=== PATIENT | female | born 1975 | race Caucasian/White ===

== ENCOUNTER 2021-06-26 12:31 | Emergency (ER) | payer BC ==
[~2021-06-26] VITALS: Ht 170 cm; Wt 117.0 kg
[2021-06-26 12:35] VITALS: BP 127/83
[2021-06-26 13:05] LABS: ALBUMIN 3.7 GM/DL (3.2-4.5); POTASSIUM 4.1 MMOL/L (3.6-5.0)
--- NOTE | 2021-06-26 13:05 | ED Lower Extremity ---
General Chief Complaint: Lower Extremity Stated Complaint: L LEG REDNESS/PAIN Nursing Triage Note: PT C/O WORSENING PAIN TO L LOWER LEG. ONSET 2 DAYS AGO, PT HAS A HX OF DVT/PE, WAS ON ELIQUIS THEN XARELTO, PT REPORTS TOOK HERSELF OFF OF HER BLOOD THINNERS SEVERAL MONTHS AGO, STATES HAS BEEN TAKEING TUMERIC CAPSULES SINCE THEN. PT C/O L LOWER LEG PAIN X 2 DAYS, REPORTS TOOK AN ASA LAST NIGHT AND ELEVATED HER LEG. Source: patient Exam Limitations: no limitations History of Present Illness Date Seen by Provider: Jun 26, 2021 Time Seen by Provider: 13:02 Initial Comments To ER with reports of left medial lower leg discomfort and swelling. This began yesterday. She has a history of DVT in her left leg. She was initially on Eliquis and then transition to Xarelto. She states that while on the Xarelto she had diffuse joint pains and it made her feel generally poorly so she stopped taking it a few months ago. She then followed with primary care Dr. Lucila Garcia and they discussed that since this was the first occurrence of DVT and she had already been on anticoagulants for a couple of years it was reasonable to try stopping it. She had been doing fine until last night she developed some swelling and redness. She did take an aspirin last night. No chest pain no shortness of breath and otherwise feels fine. She denies any recent surgeries or prolonged immobilization, no injury to the leg. She states that her father does have a history of DVT as well. Onset: just prior to arrival Severity: moderate Pain/Injury Location: left ankle Modifying Factors: Worse With Movement Allergies and Home Medications Allergies Coded Allergies: No Known Drug Allergies (Unverified , 02/08/12) Patient Home Medication List Home Medication List Reviewed: Yes Review of Systems Constitutional: see HPI EENTM: see HPI Respiratory: no symptoms reported Cardiovascular: no symptoms reported Genitourinary: no symptoms reported Musculoskeletal: see HPI Skin: no symptoms reported Psychiatric/Neurological: No Symptoms Reported Past Wmoqtpz-Baadmr-Xqjejm Hx Patient Social History Tobacco Use?: No Use of E-Cig and/or Vaping dev: No Substance use?: No Alcohol Use?: No Pt feels they are or have been: No Immunizations Up To Date First/Initial COVID19 Vaccinat: JUL 2020 Second COVID19 Vaccination Mk: AUG 2020 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 oz. kg; 40.00 BMI Method:Stated General Appearance: WD/WN, no apparent distress HEENT: PERRL/EOMI, normal ENT inspection Respiratory: no respiratory distress, no accessory muscle use Hips: bilateral hip non-tender, bilateral hip normal inspection, bilateral hip normal range of motion Legs: bilateral leg non-tender, bilateral leg normal inspection, bilateral leg normal range of motion Knees: bilateral knee non-tender, bilateral knee normal inspection, bilateral knee normal range of motion Ankles: left ankle other (questionable erythema just superior/medial to the left ankle.) Neurologic/Psychiatric: alert, normal mood/affect, oriented x 3 Skin: normal color, warm/dry Foot is warm and well-perfused strong posterior tibial pulse. Progress/Results/Core Measures Results/Orders Lab Results Laboratory Tests Test 06/26/21 12:47 06/26/21 13:05 Range/Units Sodium Level 135 135-145 MMOL/L Potassium Level 4.1 3.6-5.0 MMOL/L Chloride Level 107 98-107 MMOL/L Carbon Dioxide Level 16 L 21-32 MMOL/L Anion Gap 12 5-14 MMOL/L Blood Urea Nitrogen 10 7-18 MG/DL Creatinine 0.84 0.60-1.30 MG/DL Estimat Glomerular Filtration Rate 74 BUN/Creatinine Ratio 12 Glucose Level 120 H 70-105 MG/DL Calcium Level 8.7 8.5-10.1 MG/DL Corrected Calcium 8.9 8.5-10.1 MG/DL Total Bilirubin 0.2 0.1-1.0 MG/DL Aspartate Amino Transf (AST/SGOT) 45 H 5-34 U/L Alanine Aminotransferase (ALT/SGPT) 70 H 0-55 U/L Alkaline Phosphatase 96 40-136 U/L C-Reactive Protein High Sensitivity 1.17 H 0.00-0.50 MG/DL Total Protein 6.8 6.4-8.2 GM/DL Albumin 3.7 3.2-4.5 GM/DL White Blood Count 9.6 4.3-11.0 10^3/uL Red Blood Count 4.76 3.80-5.11 10^6/uL Hemoglobin 11.0 L 11.5-16.0 g/dL Hematocrit 36 35-52 % Mean Corpuscular Volume 77 L 80-99 fL Mean Corpuscular Hemoglobin 23 L 25-34 pg Mean Corpuscular Hemoglobin Concent 30 L 32-36 g/dL Red Cell Distribution Width 15.9 H 10.0-14.5 % Platelet Count 420 H 130-400 10^3/uL Mean Platelet Volume 9.2 9.0-12.2 fL Immature Granulocyte % (Auto) 1 % Neutrophils (%) (Auto) 66 42-75 % Lymphocytes (%) (Auto) 19 12-44 % Monocytes (%) (Auto) 10 0-12 % Eosinophils (%) (Auto) 3 0-10 % Basophils (%) (Auto) 0 0-10 % Neutrophils # (Auto) 6.4 1.8-7.8 10^3/uL Lymphocytes # (Auto) 1.9 1.0-4.0 10^3/uL Monocytes # (Auto) 1.0 0.0-1.0 10^3/uL Eosinophils # (Auto) 0.3 0.0-0.3 10^3/uL Basophils # (Auto) 0.0 0.0-0.1 10^3/uL Immature Granulocyte # (Auto) 0.1 0.0-0.1 10^3/uL D-Dimer 0.44 0.00-0.49 UG/ML Serum Test, Qualitative NEGATIVE NEGATIVE My Orders Orders - EARL PARRY APRN Cbc With Automated Diff (06/26/21 12:34) Comprehensive Metabolic Panel (06/26/21 12:34) Fibrin Degradation Products (06/26/21 12:34) Hs C Reactive Protein (06/26/21 12:34) Us Venous Lower Ext Lt (06/26/21 12:56) Hcg,Qualitative Serum (06/26/21 13:06) Vital Signs/I&O 06/26/21 06/26/21 12:35 13:52 Temp 36.3 Pulse 85 92 Resp 18 18 B/P (MAP) 127/83 (98) 110/75 Pulse Ox 98 98 O2 Delivery Room Air Room Air Blood Pressure Mean: 98 Departure Communication (Admissions) D-dimer is negative and the lower extremity venous ultrasound is also negative. She does not have a DVT despite her history of that. Cause of her pain is not entirely clear. She is very relieved to know that this is not a DVT. Impression Primary Impression: Pain of left calf Disposition: HOME, SELF-CARE Condition: Stable Departure-Patient Inst. Decision time for Depature: 13:57 Referrals: LUCILA GARCIA DO (PCP/Family) Primary Care Physician Patient Instructions: NO INSTRUCTIONS GIVEN Add. Discharge Instructions: . Return to ER for any concerns. All discharge instructions reviewed with patient and/or family. Voiced understanding. Scripts No Active Prescriptions or Reported Meds EARL PARRY WATER CARTER Jun 26, 2021 13:05
[2021-06-26 13:07] LABS: CALCIUM 8.7 MG/DL (8.5-10.1)
[2021-06-26 13:08] LABS: TOTAL PROTEIN 6.8 GM/DL (6.4-8.2)
[2021-06-26 13:10] LABS: BASOPHILS % (AUTO) 0 % (0-10); EOSINOPHILS # (AUTO) 0.3 10^3/uL (0.0-0.3); EOSINOPHILS % (AUTO) 3 % (0-10); HEMATOCRIT 36 % (35-52); LYMPHOCYTES # (AUTO) 1.9 10^3/uL (1.0-4.0); LYMPHOCYTES % (AUTO) 19 % (12-44); MEAN CORPUSCULAR HEMOGLOBIN 23 pg (25-34); MEAN CORPUSCULAR HGB CONC 30 g/dL (32-36); MEAN CORPUSCULAR VOLUME 77 fL (80-99); MEAN PLATELET VOLUME 9.2 fL (9.0-12.2); MONOCYTES % (AUTO) 10 % (0-12); NEUTROPHILS # (AUTO) 6.4 10^3/uL (1.8-7.8); NEUTROPHILS % (AUTO) 66 % (42-75); PLATELET COUNT 420 10^3/uL (130-400); WHITE BLOOD COUNT 9.6 10^3/uL (4.3-11.0)
[2021-06-26 13:10] LABS: BILIRUBIN,TOTAL 0.2 MG/DL (0.1-1.0)
[2021-06-26 13:12] LABS: CREATININE SERUM 0.84 MG/DL (0.60-1.30)
--- NOTE | 2021-06-26 14:09 | Diagnostic Imaging Report ---
EXAMINATION: US Lower Extremity Venous Duplex Left. TECHNIQUE: Multiple real-time grayscale images were obtained over the left lower extremity in various projections. Additional spectral analysis and color Doppler duplex images were also obtained. HISTORY: Swelling COMPARISON: None available. FINDINGS: Left: The common femoral, superficial femoral, popliteal, peroneal, posterior tibial, and greater saphenous veins demonstrate normal flow, augmentation, compressibility. IMPRESSION: 1. No DVT of the left lower extremity. Dictated by: Dictated on workstation # [id number]
== END 2021-06-26 14:00 | disposition home or self-care (01) ==
LOC: EDUNIT# 12:31 → ER 12:33
DX: M79.662 Pain in left lower leg (principal); Z86.718 Personal history of other venous thrombosis and embolism; Z79.01 Long term (current) use of anticoagulants
CPT/HCPCS: 36415; 80053; 84703; 85025; 85379; 86141

== ENCOUNTER 2022-08-03 13:04 | Emergency (ER) | payer BC ==
[~2022-08-03] VITALS: Ht 167 cm; Wt 113.0 kg
[2022-08-03 13:35] LABS: BASOPHILS % (AUTO) 1 % (0-10); HEMATOCRIT 34 % (35-52); HEMOGLOBIN 9.9 g/dL (11.5-16.0); MEAN CORPUSCULAR HEMOGLOBIN 20 pg (25-34); MEAN CORPUSCULAR HGB CONC 29 g/dL (32-36); MEAN CORPUSCULAR VOLUME 70 fL (80-99); MEAN PLATELET VOLUME 10.7 fL (9.0-12.2); MONOCYTES # (AUTO) 0.5 10^3/uL (0.0-1.0); MONOCYTES % (AUTO) 8 % (0-12)
[2022-08-03 13:36] LABS: EOSINOPHILS # (AUTO) 0.3 10^3/uL (0.0-0.3); EOSINOPHILS % (AUTO) 5 % (0-10); LYMPHOCYTES # (AUTO) 1.8 10^3/uL (1.0-4.0); LYMPHOCYTES % (AUTO) 26 % (12-44); NEUTROPHILS # (AUTO) 4.1 10^3/uL (1.8-7.8); NEUTROPHILS % (AUTO) 60 % (42-75); PLATELET COUNT 281 10^3/uL (130-400); WHITE BLOOD COUNT 6.8 10^3/uL (4.3-11.0)
[2022-08-03 13:45] LABS: SMEAR SCAN COMMENT YES
--- NOTE | 2022-08-03 13:47 | ED Respiratory ---
General Chief Complaint: Abdominal/GI Problems Stated Complaint: RT SIDE/CHEST PAIN Nursing Triage Note: RIGHT UPPER ABD PAIN THAT RADIATES INTO THE BACK X4 DAYS. STATES PAIN STARTED IN HER SHOULDER. HX OF PE X4 YEARS AGO. Source: patient Exam Limitations: no limitations History of Present Illness Date Seen by Provider: Aug 03, 2022 Time Seen by Provider: 13:36 Initial Comments This is a 47-year-old female who presented the ER with complaints of right-sided chest pain and shortness of breath. Symptom onset was 4 days ago. Has a history of DVT and pulmonary embolism, first diagnosed in 2018. States that she was on Eliquis and Xarelto but had discontinued both of those last year due to side effects. She has been evaluated for coagulation disorders and negative. Initial DVT/PE was precipitated by new job where she was very sedentary and sat for extended length of time. States that she has not had any recent travel, long trips. She would like to be evaluated for another pulmonary embolism as this feels similar to previous episode. Describes pain as sharp and stabbing, worse with deep inspiration. Pain is relieved by elevating her right arm. HPI was obtained per patient. 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 oz. kg; 40.00 BMI Method:Stated General Appearance: WD/WN, no apparent distress Eyes: Bilateral Eye Normal Inspection, Bilateral Eye PERRL, Bilateral Eye EOMI Progress/Results/Core Measures Suspected Sepsis SIRS Temperature: Pulse: 91 Respiratory Rate: 16 Laboratory Tests 08/03/22 13:17: White Blood Count 6.8 Blood Pressure 136 /89 Mean: 105 Laboratory Tests 08/03/22 13:17: Creatinine 0.82, Platelet Count 281, Total Bilirubin 0.2 08/03/22 14:15: INR Comment 0.9 Results/Orders Lab Results Laboratory Tests Test 08/03/22 13:17 08/03/22 13:43 08/03/22 14:15 Range/Units White Blood Count 6.8 4.3-11.0 10^3/uL Red Blood Count 4.90 3.80-5.11 10^6/uL Hemoglobin 9.9 L 11.5-16.0 g/dL Hematocrit 34 L 35-52 % Mean Corpuscular Volume 70 L 80-99 fL Mean Corpuscular Hemoglobin 20 L 25-34 pg Mean Corpuscular Hemoglobin Concent 29 L 32-36 g/dL Red Cell Distribution Width 17.7 H 10.0-14.5 % Platelet Count 281 130-400 10^3/uL Mean Platelet Volume 10.7 9.0-12.2 fL Immature Granulocyte % (Auto) 0 % Neutrophils (%) (Auto) 60 42-75 % Lymphocytes (%) (Auto) 26 12-44 % Monocytes (%) (Auto) 8 0-12 % Eosinophils (%) (Auto) 5 0-10 % Basophils (%) (Auto) 1 0-10 % Neutrophils # (Auto) 4.1 1.8-7.8 10^3/uL Lymphocytes # (Auto) 1.8 1.0-4.0 10^3/uL Monocytes # (Auto) 0.5 0.0-1.0 10^3/uL Eosinophils # (Auto) 0.3 0.0-0.3 10^3/uL Basophils # (Auto) 0.0 0.0-0.1 10^3/uL Immature Granulocyte # (Auto) 0.0 0.0-0.1 10^3/uL Percent Immature Platelet Fraction 6.3 0.0-7.6 % Sodium Level 138 135-145 MMOL/L Potassium Level 4.4 3.6-5.0 MMOL/L Chloride Level 106 98-107 MMOL/L Carbon Dioxide Level 20 L 21-32 MMOL/L Anion Gap 12 5-14 MMOL/L Blood Urea Nitrogen 10 7-18 MG/DL Creatinine 0.82 0.60-1.30 MG/DL Estimat Glomerular Filtration Rate 90 BUN/Creatinine Ratio 12 Glucose Level 160 H 70-105 MG/DL Calcium Level 9.1 8.5-10.1 MG/DL Corrected Calcium 9.3 8.5-10.1 MG/DL Magnesium Level 1.9 1.6-2.4 MG/DL Total Bilirubin 0.2 0.1-1.0 MG/DL Aspartate Amino Transf (AST/SGOT) 88 H 5-34 U/L Alanine Aminotransferase (ALT/SGPT) 112 H 0-55 U/L Alkaline Phosphatase 111 40-136 U/L Total Creatine Kinase 45 29-168 U/L Creatine Kinase MB 0.7 <6.6 NG/ML Myoglobin 26.5 10.0-92.0 NG/ML Troponin I < 0.028 <0.028 NG/ML C-Reactive Protein High Sensitivity 0.72 H 0.00-0.50 MG/DL B-Type Natriuretic Peptide 28.3 <100.0 PG/ML Total Protein 7.2 6.4-8.2 GM/DL Albumin 3.8 3.2-4.5 GM/DL Lipase 43 8-78 U/L Smear Scan YES Influenza Type A (RT-PCR) Not Detected Not Detecte Influenza Type B (RT-PCR) Not Detected Not Detecte SARS-CoV-2 RNA (RT-PCR) Not Detected Not Detecte Erythrocyte Sedimentation Rate 9 0-20 MM/HR Prothrombin Time 12.6 12.2-14.7 SEC INR Comment 0.9 0.8-1.4 Activated Partial Thromboplast Time 27 24-35 SEC D-Dimer 0.89 H 0.00-0.49 UG/ML My Orders Orders - SHERIDAN STOKES APRN Ekg Tracing (08/03/22 13:27) Cbc With Automated Diff (08/03/22 13:27) Magnesium (08/03/22 13:27) Chest 1 View, Ap/Pa Only (08/03/22 13:27) Comprehensive Metabolic Panel (08/03/22 13:27) Myoglobin Serum (08/03/22 13:27) Protime With Inr (08/03/22 13:27) Partial Thromboplastin Time (08/03/22 13:27) O2 (08/03/22 13:27) Monitor-Rhythm Ecg Trace Only (08/03/22 13:27) Ed Iv/Invasive Line Start (08/03/22 13:27) Creatine Kinase (08/03/22 13:27) Creatine Kinase Mb (08/03/22 13:27) Lipase (08/03/22 13:27) Bnp Johnny (08/03/22 13:27) Fibrin Degradation Products (08/03/22 13:27) Troponin I Johnny (08/03/22 13:27) Covid 19 Inhouse Test (08/03/22 13:28) Influenza A And B By Pcr (08/03/22 13:28) Hs C Reactive Protein (08/03/22 13:53) Erythrocyte Sedimentation Rate (08/03/22 13:53) Ct Angio Chest W (08/03/22 14:45) Iohexol Injection (Omnipaque 350 Mg/Ml 1 (08/03/22 15:00) Received Contrast (Hold Metformin- Contr (08/03/22 15:00) Ns (Ivpb) (Sodium Chloride 0.9% Ivpb Bag (08/03/22 15:00) Ns Iv 500 Ml (Sodium Chloride 0.9%) (08/03/22 15:30) Medications Given in ED Current Medications Medications Dose Ordered Sig/Bing Route Start Time Stop Time Status Last Admin Dose Admin Iohexol 100 ml ONCE ONCE IV 08/03/22 15:00 08/03/22 15:01 DC 08/03/22 15:00 84 ML Sodium Chloride 100 ml ONCE ONCE IV 08/03/22 15:00 08/03/22 15:01 DC 08/03/22 15:00 80 ML Sodium Chloride 500 ml @ 0 mls/hr Q0M ONCE IV 08/03/22 15:30 08/03/22 15:31 DC 08/03/22 15:35 500 MLS/HR Vital Signs/I&O 08/03/22 13:13 Temp 36.7 Pulse 91 Resp 16 B/P (MAP) 136/89 (105) Pulse Ox 98 O2 Delivery Room Air Capillary Refill : Less Than 3 Seconds Blood Pressure Mean: 105 ECG Initial ECG Impression Date: Aug 03, 2022 Initial ECG Impression Time: 13:45 Initial ECG Rate: 85 Initial ECG Rhythm: Normal Sinus Initial ECG Intervals: Normal Initial ECG Impression: Normal Initial ECG Comparisson: No Previous ECG Available Diagnostic Imaging Diagonstic Imaging: Xray Plain Films/CT/US/NM/MRI: chest Comments [facility]. [place], [place] NAME: ALBIN BOWERS [facility] REC#: [id number] PT STATUS: REG ER : 1975 PHYSICIAN: SHERIDAN STOKES MANAGER [employer] ADMIT DATE: 08/03/22/ER Draft Date of Exam:08/03/22 CHEST 1 VIEW, AP/PA ONLY INDICATION: Chest pain. TECHNIQUE: Frontal chest obtained at 01:26 p.m. FINDINGS: Heart and mediastinal silhouette are normal in appearance. The lungs are clear. There is no pneumothorax or pleural fluid. IMPRESSION: Negative chest. Dictated on workstation # [id number] Dict: 08/03/22 1344 Trans: 08/03/22 1347 AS6 [id number] Interpreted by: IAMN JUNIOR MD Electronically signed by: Departure Impression Primary Impression: Pleuritic chest pain Additional Impression: Elevated liver function tests Disposition: HOME, SELF-CARE Condition: Improved Departure-Patient Inst. Decision time for Depature: 15:41 Referrals: CHARLES RUIZ APRN (PCP) Primary Care Physician [facility] (Family) Primary Care Physician Patient Instructions: Pleuritic Chest Pain ED Add. Discharge Instructions: Plan: 1. May take Tylenol or Ibuprofen as needed for pain per package. 2. May use ice/heat 20 minutes at a time. Take Prednisone daily with food. Start tomorrow. 3. Follow up with your doctor if your symptoms persist. 4. Hepatitis panel pending. May take up to 5-7 days for final results. We will notify you with any positive results. All discharge instructions reviewed with patient and/or family. Voiced understanding. Scripts Prednisone (Prednisone) 20 Mg Tab 20 MG PO DAILY for 4 Days, #4 TAB 0 Refills Prov: SHERIDAN STOKES MANAGER [employer]ENS[employer] 08/03/22 SHERIDAN STOKES MANAGER [employer]ENSIC Aug 03, 2022 13:47
[2022-08-03 14:04] LABS: ALBUMIN 3.8 GM/DL (3.2-4.5); BILIRUBIN,TOTAL 0.2 MG/DL (0.1-1.0); CALCIUM 9.1 MG/DL (8.5-10.1); CREATININE SERUM 0.82 MG/DL (0.60-1.30); MAGNESIUM 1.9 MG/DL (1.6-2.4); POTASSIUM 4.4 MMOL/L (3.6-5.0); TOTAL PROTEIN 7.2 GM/DL (6.4-8.2)
[2022-08-03 14:11] LABS: CREATINE KINASE MB 0.7 NG/ML (<6.6)
[2022-08-03 14:41] LABS: INR 0.9 (0.8-1.4); PROTHROMBIN TIME PATIENT 12.6 SEC (12.2-14.7)
[2022-08-03] MEDS ORDERED: NS 100 ML (IVPB) BAG IV ONE (15:00)
[2022-08-03] MEDS ORDERED: HOLD METFORMIN - RECEIVED CONTRAST 20 ML VIAL IV SCH (15:00)
[2022-08-03] MEDS ORDERED: IOHEXOL 350 MG/ML 100 ML (OMNIPAQUE 350) VIAL IV ONE (15:00)
--- NOTE | 2022-08-03 15:13 | Diagnostic Imaging Report ---
EXAMINATION: CT angiography of the chest. TECHNIQUE: Contrast enhanced thin section helical images were obtained through the chest with intravenous contrast timed for the optimal opacification of the arterial structures per CTA protocol. Post-processing, reconstructions and interpretation of angiographic images of the vessels was performed. 3D MIP reconstructions were performed and reviewed. All CT scans use one or more of the following dose optimizing techniques: automated exposure control, MA and/or KvP adjustment based on a patient size and exam type, or iterative reconstruction. HISTORY: Chest pain. COMPARISON: None available. FINDINGS: Vascular: No filling defects within the pulmonary arteries. Thoracic aorta is normal in caliber. Thyroid: The thyroid is normal. Mediastinum: Heart size is normal without significant pericardial effusion. No suspicious lymphadenopathy. Lungs and airways: The lungs are clear without consolidation, pleural effusion, or pneumothorax. The airways are normal. Upper abdomen: There is diffuse hypoattenuation of the liver which can be seen with hepatic steatosis. Musculoskeletal: Degenerative changes of the spine without suspicious osseous lesion or compression fracture. IMPRESSION: 1. No findings of pulmonary embolus or other acute abnormality in the chest. Dictated by: Dictated on workstation # [id number]
[2022-08-03] MEDS ORDERED: NS IV 500 ML 500 ML IV ONE (15:30)
[2022-08-03] MEDS ORDERED: PRD20T PO (15:42)
[2022-08-03] MEDS ORDERED: predniSONE 20 MG TAB PO ONE (15:45)
[2022-08-03] MEDS ORDERED: KETOROLAC 30 MG/ML VIAL IVP ONE (16:00)
[2022-08-03 16:09] VITALS: BP 114/83
[2022-08-03 21:38] LABS: HEPATITIS C ANTIBODY C Non-Reactive (Non-Reactive)
== END 2022-08-03 16:09 | disposition home or self-care (01) ==
LOC: EDUNIT# 13:04 → ER 13:08
DX: R07.81 Pleurodynia (principal); R79.89 Other specified abnormal findings of blood chemistry; F17.200 Nicotine dependence, unspecified, uncomplicated; Z20.822 Contact with and (suspected) exposure to COVID-19; Z91.14 Patient's other noncompliance with medication regimen
CPT/HCPCS: 36415; 71045; 71275; 80053; 80074; 82550; 82553; 83690; 83735; 83874; 83880; 84484; 85025; 85379; 85610; 85652; 85730; 86141; 87636; 93005; 93041